=== PATIENT | male | born 1995 | race Caucasian/White ===

== ENCOUNTER 2018-09-22 01:36 | Emergency (ER) | payer OTHER ==
[~2018-09-22] VITALS: Ht 182.9 cm; Wt 86.4 kg
[~2018-09-22 01:36] MED LIST: BUPRENORPHIN-N1 EACH SL
[2018-09-22 01:41] VITALS: Ht 182.9 cm; Wt 86.4 kg
[2018-09-22 02:19] VITALS: BP 128/87
== END 2018-09-22 02:22 | disposition other institution (70) ==
LOC: D.ER 01:36
DX: S61.532A Puncture wound without foreign body of left wrist, initial encounter (principal); Y35.091A Legal intervention involving other firearm discharge, law enforcement official injured, initial encounter; Y93.89 Activity, other specified; Y92.89 Other specified places as the place of occurrence of the external cause; F17.200 Nicotine dependence, unspecified, uncomplicated